=== PATIENT | female | born 1985 | race Caucasian/White ===

== ENCOUNTER 2020-07-01 15:10 | Outpatient (REF) | payer OTHER, SELFPAY ==
[2020-07-01 18:21] LABS: COVID-19 Test Negative (Negative)
== END 2020-07-01 15:11 | disposition home or self-care (01) ==
LOC: HO.LAB 15:10
PROVIDERS: Visit Provider Internal Medicine
DX: Z20.828 Contact with and (suspected) exposure to other viral communicable diseases (principal)
CPT/HCPCS: 87635; C9803

== ENCOUNTER 2020-07-08 14:26 | Outpatient (REF) | payer OTHER, SELFPAY ==
[2020-07-08 14:49] LABS: COVID-19 Test Negative (Negative)
== END 2020-07-08 14:27 | disposition home or self-care (01) ==
LOC: HO.EMPCOV 14:26
PROVIDERS: Visit Provider Internal Medicine
DX: Z20.828 Contact with and (suspected) exposure to other viral communicable diseases (principal)
CPT/HCPCS: 87635; C9803

== ENCOUNTER 2020-07-29 10:44 | Outpatient (REF) | payer OTHER, SELFPAY ==
[2020-07-29 10:54] LABS: COVID-19 Test Positive (Negative); IDNOW Serial# 55D5AD1C
== END 2020-07-29 10:45 | disposition home or self-care (01) ==
LOC: HO.EMPCOV 10:44
PROVIDERS: Visit Provider Internal Medicine
DX: Z20.822 Contact with and (suspected) exposure to COVID-19 (principal)
CPT/HCPCS: 36415; 87635; C9803

== ENCOUNTER 2020-08-21 08:45 | Outpatient (REF) | payer BC, SELFPAY ==
[2020-08-21 11:36] LABS: Hematocrit 44.3 % (37-47); Hemoglobin 14.4 g/dl (12.0-16.0); Mean Corpuscular HGB Conc 32.5 g/dl (31.0-35.0); Mean Corpuscular Hemoglobin 28.5 pg (27.0-33.0); Mean Corpuscular Volume 87.7 fL (80-98); Mean Platelet Volume 12.4 fL (9.4-12.3); Platelet Count 226 X10*3/uL (160-400); Red Blood Count 5.05 X10*6/uL (4.20-5.50); Red Cell Distribution Width 12.7 % (11.0-16.0); White Blood Count 4.9 X10*3/uL (4.8-10.8)
[2020-08-21 11:47] LABS: Alanine Aminotransferase 21 U/L (0-31); Albumin Level 4.4 g/dL (3.5-5.0); Alkaline Phosphatase 82 U/L (39-117); Anion Gap 13 (12-20); Aspartate Amino Transferase 21 U/L (5-31); Blood Urea Nitrogen 14 mg/dL (9-16); Calcium 9.2 mg/dL (8.4-10.2); Carbon Dioxide 29 mmol/L (22-29); Chloride 104 mmol/L (96-108); Estimated Glomerular Filt Rate > 60; Glucose Random 75 mg/dL (60-115); Iron 146 mcg/dL (30-160); Percent Iron Saturation 46 % (15-50); Potassium 4.5 mmol/L (3.3-5.1); Sodium 141 mmol/L (135-145); Total Iron Binding Capacity 316 mcg/dL (228-428); Unsaturated Iron Binding 170 ug/dL
== END 2020-08-21 08:46 | disposition home or self-care (01) ==
LOC: HO.HMGCLDS 08:45
PROVIDERS: PCP Internal Medicine; Visit Provider Internal Medicine
DX: R42 Dizziness and giddiness (principal)
CPT/HCPCS: 36415; 80053; 83540; 85027

== ENCOUNTER 2021-05-02 09:10 | Outpatient (REF) | payer BC, SELFPAY ==
[2021-05-02 11:42] LABS: Cholesterol 173 mg/dL; HDL Cholesterol 51 mg/dL; LDL Cholesterol Calculated 112 mg/dl; Triglycerides 53 mg/dL
[2021-05-02 12:05] LABS: TSH reflex Free T4 1.73 uIU/mL (0.32-4.0)
== END 2021-05-02 09:11 | disposition home or self-care (01) ==
LOC: HO.HMGCLDS 09:10
PROVIDERS: PCP Internal Medicine; Visit Provider Internal Medicine
DX: Z00.00 Encounter for general adult medical examination without abnormal findings (principal)
CPT/HCPCS: 36415; 80061; 82306; 84443

== ENCOUNTER 2021-07-25 09:09 | Outpatient (REF) | payer BC, SELFPAY ==
[2021-07-25 09:47] LABS: Binax Internal Control QC Valid; Binax Now Covid-19 Ag Negative (Negative)
== END 2021-07-25 09:10 | disposition home or self-care (01) ==
LOC: HO.HMGCLDS 09:09
PROVIDERS: Visit Provider Internal Medicine
DX: Z13.89 Encounter for screening for other disorder (principal)

== ENCOUNTER 2022-05-13 09:05 | Outpatient (REF) | payer BC, SELFPAY ==
[2022-05-13 12:04] LABS: Eosinophils Absolute Auto 0.1 X10*3/uL (0.0-0.4); Eosinophils Percent Auto 1.5 % (0-4); Hematocrit 44.8 % (37.0-47.0); Hemoglobin 14.9 g/dl (12.0-16.0); Imm Gran Abs Auto 0.01 X10*3/uL (0.00-0.03); Imm Gran Pct Auto 0.3 % (0.0-0.4); Lymphocytes Absolute Auto 1.1 X10*3/uL (1.2-4.9); Lymphocytes Percent Auto 26.8 % (20-40); MANUAL DIFF FLAG NO; Mean Corpuscular HGB Conc 33.3 g/dl (31.0-35.0); Mean Corpuscular Hemoglobin 28.7 pg (27.0-33.0); Mean Corpuscular Volume 86.2 fL (80.0-98.0); Mean Platelet Volume 11.9 fL (9.4-12.3); Monocytes Absolute Auto 0.3 X10*3/uL (0.1-1.2); Monocytes Percent Auto 7.1 % (2-11); Neutrophils Absolute Auto 2.5 x10*3/uL (2.0-8.3); Neutrophils Percent Auto 63.3 % (45-73); Platelet Count 261 X10*3/uL (160-400); Red Cell Distribution Width 11.9 % (11.0-16.0)
[2022-05-13 12:38] LABS: Alanine Aminotransferase 15 U/L (0-31); Albumin Level 4.9 g/dL (3.5-5.0); Alkaline Phosphatase 85 U/L (39-117); Anion Gap 16 (12-20); Aspartate Amino Transferase 20 U/L (5-31); Bilirubin Total 0.8 mg/dL (0.0-1.0); Blood Urea Nitrogen 12 mg/dL (9-16); C Reactive Protein 0.07 mg/dL (< or = 0.50); Calcium 9.6 mg/dL (8.4-10.2); Carbon Dioxide 24 mmol/L (22-29); Chloride 104 mmol/L (96-108); Cholesterol 205 mg/dL; Estimated Glomerular Filt Rate > 60; Glucose Fasting 77 mg/dL (60-99); HDL Cholesterol 61 mg/dL; LDL Cholesterol Calculated 133 mg/dl; Potassium 4.2 mmol/L (3.3-5.1); Sodium 140 mmol/L (135-145); Total Protein 7.7 g/dL (6.5-8.0); Triglycerides 55 mg/dL
[2022-05-13 12:43] LABS: TSH reflex Free T4 1.76 uIU/mL (0.32-4.0); Vitamin D 25-OH Total 23.4 ng/mL (>30)
[2022-05-13 12:48] LABS: Erythrocyte Sedimentation Rate 2 MM/HR (0-20)
[2022-05-13 12:55] LABS: Rheumatoid Factor < 15.0 IU/mL (<15.0); Vitamin B12 417 pg/mL (200-900)
[2022-05-14 18:22] LABS: Scleroderma 70 Antibody <1.0 NEG AI (<1.0 NEG)
[2022-05-14 18:47] LABS: Thyroid Peroxidase Antibodies <1 IU/mL (<9)
[2022-05-15 13:55] LABS: Anti Nuclear Antibody Screen NEGATIVE (NEGATIVE)
[2022-05-15 16:11] LABS: Cyclic Citrullinated Peptide <16 UNITS
== END 2022-05-13 09:06 | disposition home or self-care (01) ==
LOC: HO.HMGCLDS 09:05
PROVIDERS: PCP Internal Medicine; Visit Provider Internal Medicine
DX: Z00.00 Encounter for general adult medical examination without abnormal findings (principal); L80 Vitiligo
CPT/HCPCS: 36415; 80053; 80061; 82306; 82607; 84443; 85025; 85652; 86038; 86039; 86140; 86200; 86235; 86376; 86431

== ENCOUNTER 2023-08-20 09:39 | Outpatient (REF) | payer BC, SELFPAY ==
--- NOTE | ~2023-08-20 | XR_ITS ---
EXAMINATION: XR CHEST CLINICAL INFORMATION: Cough. COMPARISON: None available. TECHNIQUE: 2 views of the chest were obtained. FINDINGS: Lungs are well expanded. No focal consolidation. No pleural effusion. Cardiac silhouette is within normal limits. XR/XR chest 2V IMPRESSION: No acute abnormality.
== END 2023-08-20 09:40 | disposition home or self-care (01) ==
LOC: HO.HMGCX 09:39
PROVIDERS: PCP Internal Medicine; Visit Provider Internal Medicine
DX: R05.9 Cough, unspecified (principal)
CPT/HCPCS: 71046

== ENCOUNTER 2024-06-12 11:06 | Outpatient (AMB) | payer BC, SELFPAY ==
[2024-06-12 11:12] VITALS: BP 120/72; PULSE 63; TEMP 36.5; O2SAT 99
--- NOTE | 2024-06-12 11:12 | A.OFFPC_ITS ---
Vital Signs 06/12/24 11:12 BP 120/72 Blood Pressure Location Lt brachial Position Sitting Pulse 63 Pulse Source Pulse Oximeter Temp 97.7 F Temp Source Oral Pulse Oximetry (%) 99 Oxygen Delivery Method Room Air Intake Visit Reasons: Cough Allergies No Known Allergies Allergy (Verified 03/31/22 14:01) Tobacco use date assessed: 03/31/22 HPI Cough HPI Details Patient complains of productive cough wheezing chest tightness for 5 days getting worse. She complains of watery diarrhea, nausea and vomited yesterday. Patient denies pleurisy but reports night sweats and fever. [facility] [place] Medical History Neck pain Annual physical exam Vertigo Family History Father History of heart attack HTN (hypertension) Diabetes mellitus Hx of CABG Mother History of heart attack HTN (hypertension) Maternal Grandmother Breast cancer Daughter No problems noted. Social History Housing: House Alcohol intake: current Alcohol intake frequency: holidays/special occasions only Patient Tobacco Use Status: Never used Tobacco e-Cigarette/Vaping Use: Never Used service: No Current occupational status: employed Cognitive needs: No Hearing needs: No Vision needs: No Review of Systems Const All systems reviewed & are unremarkable except as noted in HPI and below ENT Reports no additional complaints Card Reports no additional complaints Resp Reports no additional complaints GI Reports no additional complaints Reports no additional complaints Physical exam (Primary Care) Vital Signs: Last Vital Signs Temp 97.7 F 06/12/24 11:12 Pulse 63 06/12/24 11:12 BP 120/72 06/12/24 11:12 Pulse Ox 99 06/12/24 11:12 Oxygen Delivery Method Room Air 06/12/24 11:12 Tobacco/Smoking Status: Tobacco use Status Tobacco use date assessed 03/31/22 06/12/24 11:12 Patient Tobacco Use Status Never used Tobacco 06/12/24 11:12 e-Cigarette/Vaping Use Never Used 06/12/24 11:12 Const General: no acute distress HENMT Head: Yes normal to inspection Mouth: Normal oral and palatal mucosa present Throat: Yes posterior oropharynx normal Neck Neck: Yes supple Resp Effort & Inspection: normal respiratory effort Auscultation: rhonchi right upper and right lower and wheezes right upper Cardio Rhythm: regular rhythm Heart sounds: S1 normal heart sound present and S2 normal heart sound present Coding Level of Care Code Est Pt Level 3 (22820) Diagnoses Bronchitis J40 Assessment & Plan Assessment & Plan (1) Bronchitis: Code(s): J40 - Bronchitis, not specified as acute or chronic Category: Medical Plan: Z-Eugenio and Tessalon Perles are prescribed and supportive care discussed with the patient
== END 2024-06-12 13:35 | disposition home or self-care (01) ==
LOC: HO.HMCC 11:06
PROVIDERS: PCP Internal Medicine; Visit Provider Internal Medicine
DX: J40 Bronchitis, not specified as acute or chronic (principal)

== ENCOUNTER 2024-06-12 11:06 | Outpatient (REF) | payer BC, SELFPAY | END 2024-06-12 11:07 | disposition home or self-care (01) | LOC: HO.HMGCX 11:06 | PROVIDERS: PCP Internal Medicine; Visit Provider Internal Medicine | DX: R05.9 Cough, unspecified (principal) | CPT/HCPCS: 71046 ==